=== PATIENT | female | born 1985 | race Caucasian/White ===

== ENCOUNTER 2019-06-25 16:01 | Inpatient (IN) | payer OTHER ==
[2019-06-25] MEDS ORDERED: Ketorolac 30 MG/ML SDV IVPUSH ONE (16:19)
[2019-06-25] MEDS ORDERED: Sodium Chloride 0.9% 1,000 ML IV ONE ×2 (16:19→17:34)
[2019-06-25] MEDS ORDERED: Ondansetron 4 MG/2 ML SDV IVPUSH ONE (16:19)
--- NOTE | 2019-06-25 16:26 | EDM.PDOC ---
ED HPI GENERAL MEDICAL PROBLEM - General Chief Complaint: Neurological Problem Stated Complaint: SEIZURES Time Seen by Provider: 06/25/19 16:03 Source of Information: Reports: Patient History Limitations: Reports: No Limitations - History of Present Illness INITIAL COMMENTS - FREE TEXT/NARRATIVE: HISTORY AND PHYSICAL: History of present illness: Patient is a 34-year-old female who presents to the ED today with concern of vomiting, and her arms "locking up" since this morning. Patient states that her forearms are painful to her but she has not have any other pain. Patient states she does have a history of a seizure disorder but has not been on medications and has never been on medications for this. Patient isn't able to explain what she means by her seizure disorder. Patient denies any other symptoms or concerns or any other health history. Patient denies fever, chills, chest pain, shortness of breath, or cough. Denies headache, neck stiff ness, change in vision, syncope, or near syncope. Denies abdominal pain, diarrhea, constipation, or dysuria. Has not noted any blood in urine or stool. Patient has been eating and drinking appropriately. Review of systems: As per history of present illness and below otherwise all systems reviewed and negative. Past medical history: As per history of present illness and as reviewed below otherwise noncontributory. Surgical history: As per history of present illness and as reviewed below otherwise noncontributory. Social history: See social history for further information Family history: As per history of present illness and as reviewed below otherwise noncontributory. Physical exam: General: Patient is alert, oriented, and in no acute distress. Patient sitting on exam table, holding emesis basin and shaking. She does vomit clear fluids on exam. HEENT: Atraumatic, normocephalic, pupils equal and reactive bilaterally, negative for conjunctival pallor or scleral icterus, mucous membranes moist, TMs normal bilaterally, throat clear, neck supple, nontender, trachea midline. No drooling or trismus noted. No meningeal signs. No hot potato voice noted. Lungs: Clear to auscultation, breath sounds equal bilaterally, chest nontender. Heart: S1S2, regular rate and rhythm without overt murmur Abdomen: Soft, nondistended, nontender. Negative for masses or hepatosplenomegaly. Negative for costovertebral tenderness. Pelvis: Stable nontender. Genitourinary: Deferred. Rectal: Deferred. Skin: Intact, warm, dry. No lesions or rashes noted. Extremities: Atraumatic, negative for cords or calf pain. Neurovascular unremarkable. Neuro: Awake, alert, oriented. Cranial nerves II through XII unremarkable. Cerebellum unremarkable. Motor and sensory unremarkable throughout. Exam nonfocal. Notes: Dr. Vazquez, hospitalist legal consultant, consulted on patient and will admit to observation Voices understanding and is agreeable to plan of care. Denies any further questions or concerns at this time. Diagnostics: CBC, CMP, UA, EKG, chest x-ray, urine hCG, CPK, urine drug screen, ethanol Therapeutics: Saline, Zofran, Toradol Impression: Rhabdomyolysis, mild Dehydration H/O seizure disorder Plan: 1. Admit to observation to Dr. Vazquez Definitive disposition and diagnosis as appropriate pending reevaluation and review of above. generalized Pain Score (Numeric/FACES): 8 - Related Data Allergies Allergy/AdvReac Type Severity Reaction Status Date / Time gentamicin Allergy Other Verified 06/25/19 16:15 Home Meds: Home Meds . [No Known Home Meds] 06/25/19 [History] Past Medical History - Past Health History Medical/Surgical History: Denies Medical/Surgical History Neurological History: Reports: Seizure - Past Surgical History Female Surgical History: Reports: Section Social & Family History - Family History Family Medical History: Noncontributory - Tobacco Use Smoking Status *Q: Current Every Day Smoker Years of Tobacco use: 20 Packs/Tins Daily: 0.5 - Recreational Drug Use Recreational Drug Use: No ED ROS GENERAL - Review of Systems Review Of Systems: ROS reveals no pertinent complaints other than HPI. ED EXAM, GENERAL - Physical Exam Exam: See Below (See dictation) Course - Vital Signs Last Recorded V/S: Last Vital Signs Temp 98.3 F 06/25/19 16:12 Pulse 76 06/25/19 17:33 Resp 18 06/25/19 17:33 BP 153/98 H 06/25/19 17:33 Pulse Ox 98 06/25/19 17:33 - Orders/Labs/Meds Orders: Active Orders 24 hr Category Date Time Status Admission Status [Patient Status] [ADT] Stat ADT 06/25/19 18:16 Ordered EKG Documentation Completion [RC] STAT Care 06/25/19 16:21 Active Sodium Chloride 0.9% [Normal Saline] 1,000 ml Med 06/25/19 17:34 Active IV STAT Medication Orders Sodium Chloride (Normal Saline) 1,000 mls @ 999 mls/hr IV STAT ONE Stop: 06/25/19 18:34 Last Admin: 06/25/19 17:41 Dose: 999 mls/hr Labs: Laboratory Tests 06/25/19 06/25/19 06/25/19 Range/Units 16:19 16:22 16:45 WBC 7.67 (4.0-11.0) K/uL RBC 3.92 L (4.30-5.90) M/uL Hgb 12.3 (12.0-16.0) g/dL Hct 37.2 (36.0-46.0) % MCV 94.9 (80.0-98.0) fL MCH 31.4 (27.0-32.0) pg MCHC 33.1 (31.0-37.0) g/dL RDW Std Deviation 50.9 (28.0-62.0) fl RDW Coeff of Bishop 15 (11.0-15.0) % Plt Count 193 (150-400) K/uL MPV 10.40 (7.40-12.00) fL Neut % (Auto) 77.2 (48.0-80.0) % Lymph % (Auto) 11.1 L (16.0-40.0) % Worth % (Auto) 10.2 (0.0-15.0) % Eos % (Auto) 0.1 (0.0-7.0) % Baso % (Auto) 1.4 (0.0-1.5) % Neut # (Auto) 5.9 H (1.4-5.7) K/uL Lymph # (Auto) 0.9 (0.6-2.4) K/uL Worth # (Auto) 0.8 (0.0-0.8) K/uL Eos # (Auto) 0.0 (0.0-0.7) K/uL Baso # (Auto) 0.1 (0.0-0.1) K/uL Nucleated RBC % 0.0 /100WBC Nucleated RBCs # 0 K/uL Sodium (136-145) mmol/L Potassium (3.5-5.1) mmol/L Chloride (98-107) mmol/L Carbon Dioxide (21.0-32.0) mmol/L BUN (7.0-18.0) mg/dL Creatinine (0.6-1.0) mg/dL Est Cr Clr Drug Dosing mL/min Estimated GFR (MDRD) ml/min Glucose (74-106) mg/dL Calcium (8.5-10.1) mg/dL Total Bilirubin (0.2-1.0) mg/dL AST (15-37) IU/L ALT (14-63) IU/L Alkaline Phosphatase (46-116) U/L Creatine Kinase (26-308) U/L Total Protein (6.4-8.2) g/dL Albumin (3.4-5.0) g/dL Globulin (2.6-4.0) g/dL Albumin/Globulin Ratio (0.9-1.6) Lipase (73-393) U/L Urine Color YELLOW Urine Appearance CLEAR Urine pH 8.5 H (5.0-8.0) Ur Specific Fate 1.015 (1.001-1.035) Urine Protein TRACE H (NEGATIVE) mg/dL Urine Glucose (UA) NEGATIVE (NEGATIVE) mg/dL Urine Ketones >=80 (NEGATIVE) mg/dL Urine Occult Blood TRACE-LYSED H (NEGATIVE) Urine Nitrite NEGATIVE (NEGATIVE) Urine Bilirubin NEGATIVE (NEGATIVE) Urine Urobilinogen 0.2 (<2.0) EU/dL Ur Leukocyte Esterase NEGATIVE (NEGATIVE) Urine RBC 0-2 (0-2/HPF) Urine WBC 0-1 (0-5/HPF) Ur Epithelial Cells OCCASIONAL (NONE-FEW) Urine Bacteria RARE (NEGATIVE) Urine HCG, Qual NEGATIVE (NEGATIVE) Urine Opiates Screen (NEGATIVE) Ur Oxycodone Screen (NEGATIVE) Urine Methadone Screen (NEGATIVE) Ur Barbiturates Screen (NEGATIVE) Ur Phencyclidine Scrn (NEGATIVE) Ur Amphetamine Screen (NEGATIVE) U Methamphetamines Scrn (NEGATIVE) U Benzodiazepines Scrn (NEGATIVE) U Cocaine Metab Screen (NEGATIVE) U Marijuana (THC) Screen (NEGATIVE) Ethyl Alcohol mg/dL 06/25/19 06/25/19 Range/Units 16:45 17:38 WBC (4.0-11.0) K/uL RBC (4.30-5.90) M/uL Hgb (12.0-16.0) g/dL Hct (36.0-46.0) % MCV (80.0-98.0) fL MCH (27.0-32.0) pg MCHC (31.0-37.0) g/dL RDW Std Deviation (28.0-62.0) fl RDW Coeff of Bishop (11.0-15.0) % Plt Count (150-400) K/uL MPV (7.40-12.00) fL Neut % (Auto) (48.0-80.0) % Lymph % (Auto) (16.0-40.0) % Worth % (Auto) (0.0-15.0) % Eos % (Auto) (0.0-7.0) % Baso % (Auto) (0.0-1.5) % Neut # (Auto) (1.4-5.7) K/uL Lymph # (Auto) (0.6-2.4) K/uL Worth # (Auto) (0.0-0.8) K/uL Eos # (Auto) (0.0-0.7) K/uL Baso # (Auto) (0.0-0.1) K/uL Nucleated RBC % /100WBC Nucleated RBCs # K/uL Sodium 139 (136-145) mmol/L Potassium 3.7 (3.5-5.1) mmol/L Chloride 97 L (98-107) mmol/L Carbon Dioxide 24.7 (21.0-32.0) mmol/L BUN 8 (7.0-18.0) mg/dL Creatinine 0.8 (0.6-1.0) mg/dL Est Cr Clr Drug Dosing 69.61 mL/min Estimated GFR (MDRD) > 60.0 ml/min Glucose 133 H (74-106) mg/dL Calcium 8.1 L (8.5-10.1) mg/dL Total Bilirubin 0.7 (0.2-1.0) mg/dL AST 142 H (15-37) IU/L ALT 104 H (14-63) IU/L Alkaline Phosphatase 100 (46-116) U/L Creatine Kinase 937 H (26-308) U/L Total Protein 7.7 (6.4-8.2) g/dL Albumin 3.9 (3.4-5.0) g/dL Globulin 3.8 (2.6-4.0) g/dL Albumin/Globulin Ratio 1.0 (0.9-1.6) Lipase 153 (73-393) U/L Urine Color Urine Appearance Urine pH (5.0-8.0) Ur Specific Fate (1.001-1.035) Urine Protein (NEGATIVE) mg/dL Urine Glucose (UA) (NEGATIVE) mg/dL Urine Ketones (NEGATIVE) mg/dL Urine Occult Blood (NEGATIVE) Urine Nitrite (NEGATIVE) Urine Bilirubin (NEGATIVE) Urine Urobilinogen (<2.0) EU/dL Ur Leukocyte Esterase (NEGATIVE) Urine RBC (0-2/HPF) Urine WBC (0-5/HPF) Ur Epithelial Cells (NONE-FEW) Urine Bacteria (NEGATIVE) Urine HCG, Qual (NEGATIVE) Urine Opiates Screen NEGATIVE (NEGATIVE) Ur Oxycodone Screen NEGATIVE (NEGATIVE) Urine Methadone Screen NEGATIVE (NEGATIVE) Ur Barbiturates Screen NEGATIVE (NEGATIVE) Ur Phencyclidine Scrn NEGATIVE (NEGATIVE) Ur Amphetamine Screen NEGATIVE (NEGATIVE) U Methamphetamines Scrn NEGATIVE (NEGATIVE) U Benzodiazepines Scrn NEGATIVE (NEGATIVE) U Cocaine Metab Screen NEGATIVE (NEGATIVE) U Marijuana (THC) Screen NEGATIVE (NEGATIVE) Ethyl Alcohol < 3.0 mg/dL Meds: Medications Generic Name Dose Route Start Last Admin Trade Name Freq PRN Reason Stop Dose Admin Sodium Chloride 1,000 mls @ 999 mls/hr 06/25/19 17:34 06/25/19 17:41 Normal Saline IV 06/25/19 18:34 999 mls/hr STAT ONE Administration Discontinued Medications Generic Name Dose Route Start Last Admin Trade Name Freq PRN Reason Stop Dose Admin Sodium Chloride 1,000 mls @ 999 mls/hr 06/25/19 16:19 06/25/19 16:52 Normal Saline IV 06/25/19 17:19 999 mls/hr BOLUS ONE Administration Ketorolac Tromethamine 30 mg 06/25/19 16:19 06/25/19 16:53 Toradol IVPUSH 06/25/19 16:20 30 mg ONETIME ONE Administration Ondansetron HCl 4 mg 06/25/19 16:19 06/25/19 16:53 Zofran IVPUSH 06/25/19 16:20 4 mg ONETIME ONE Administration Departure - Departure Time of Disposition: 18:19 Disposition: Refer to Observation Clinical Impression: Dehydration, History of seizure disorder Rhabdomyolysis Qualifiers: Rhabdomyolysis type: non-traumatic Qualified Code(s): M62.82 - Rhabdomyolysis - Discharge Information Referrals: PCP,None [Primary Care Provider] - Forms: ED Department Discharge - My Orders Last 24 Hours: My Active Orders 06/25/19 16:21 EKG Documentation Completion [RC] STAT 06/25/19 17:34 Sodium Chloride 0.9% [Normal Saline] 1,000 ml IV STAT 06/25/19 18:16 Admission Status [Patient Status] [ADT] Stat - Assessment/Plan Last 24 Hours: My Active Orders 06/25/19 16:21 EKG Documentation Completion [RC] STAT 06/25/19 17:34 Sodium Chloride 0.9% [Normal Saline] 1,000 ml IV STAT 06/25/19 18:16 Admission Status [Patient Status] [ADT] Stat
[2019-06-25 17:15] LABS: BLOOD UREA NITROGEN,BUN 8 mg/dL (7.0-18.0); CARBON DIOXIDE,CO2 24.7 mmol/L (21.0-32.0); CHLORIDE,CL 97 mmol/L (98-107); GLUCOSE RANDOM 133 mg/dL (74-106); LIPASE 153 U/L (73-393); POTASSIUM,K 3.7 mmol/L (3.5-5.1); SODIUM,NA 139 mmol/L (136-145)
--- NOTE | 2019-06-25 17:48 | CR ---
CHEST 1 VIEW AP INDICATION: Chest pain and shortness of breath. IMPRESSION: Normal heart size and vascular pattern. Lungs are clear of focal opacities. No pneumothorax or pleural abnormality. Dictated by Geoff Siddiqi MD @ Jun 25 2019 5:46PM Signed by Dr. Geoff Siddiqi @ Jun 25 2019 5:47PM
[2019-06-25] MEDS ORDERED: Ibuprofen 600 MG Tab PO PRN (18:34)
[2019-06-25] MEDS ORDERED: Ondansetron 4 MG Tab.DIS PO PRN (18:34)
[2019-06-25] MEDS ORDERED: Calcium Gluconate 10% 1 GM/10 ML SDV IV ONE ×2 (18:41→20:45)
[2019-06-25] MEDS ORDERED: LORazepam 2 MG/ML SDV IVPUSH PRN (18:43)
[2019-06-25] MEDS ORDERED: Sodium Chloride 0.9% 1,000 ML IV SCH ×2 (18:45→19:00)
[2019-06-25] MEDS ORDERED: Enoxaparin 30 MG/0.3 ML Syringe SUBCUT SCH (18:45)
[2019-06-25] MEDS ORDERED: LORazepam 2 MG/ML SDV IVPUSH ONE (18:57)
--- NOTE | 2019-06-25 18:57 | PCM.HP.2 ---
H&P History of Present Illness - General Date of Service: 06/25/19 Admit Problem/Dx: Admission Diagnosis/Problem Admission Diagnosis/Problem Rhabdomyolysis - History of Present Illness Initial Comments - Free Text/Narative: 34 y/o female presenting to the ER after she had upper and lower extremity spasms. She states she was home with her family and that she suddenly started having upper extremity spasms where she could not move her arm, fingers. Lasted for few minutes. States that she was diagnosed with a seizure disorder years ago. Not taking any medications. She states she last drank alcohol on Wednesday about 2 small bottles of [place]. Smokes daily basis. Denies any illicit drug use. No allergies. She denies losing consciousness. Previous episode was about 2 weeks ago she states. In addition, she endorses withdrawal seizures few years ago after drinking alcohol. In the ER, she was hydrated with NS. States she has been having some bilious emesis. No blood. Poor appetite. Denies any abdominal pain, dysuria, diarrhea, constipation. No edema or rashes. generalized Pain Score (Numeric/FACES): 8 - Related Data Allergies/Adverse Reactions: Allergies Allergy/AdvReac Type Severity Reaction Status Date / Time gentamicin Allergy Other Verified 06/25/19 16:15 Home Medications: Home Meds . [No Known Home Meds] 06/25/19 [History] Past Medical History - Past Health History Medical/Surgical History: Denies Medical/Surgical History Neurological History: Reports: Seizure - Past Surgical History Female Surgical History: Reports: Section Social & Family History - Family History Family Medical History: Noncontributory - Tobacco Use Smoking Status *Q: Current Every Day Smoker Years of Tobacco use: 20 Packs/Tins Daily: 0.5 - Recreational Drug Use Recreational Drug Use: No H&P Review of Systems - Review of Systems: Review Of Systems: ROS reveals no pertinent complaints other than HPI. Exam - Exam Exam: See Below - Vital Signs Vital Signs: Last Vital Signs Temp 36.8 C 06/25/19 16:12 Pulse 76 06/25/19 17:33 Resp 18 06/25/19 17:33 BP 153/98 H 06/25/19 17:33 Pulse Ox 98 06/25/19 17:33 Weight: 45.359 kg - Exam General: Alert, Oriented, Cooperative, Other (tremulous) HEENT: Other (dry oral mucosa) Lungs: Clear to Auscultation, Normal Respiratory Effort. No: Crackles, Wheezing Cardiovascular: Regular Rhythm, Tachycardia GI/Abdominal Exam: Normal Bowel Sounds, Soft, Non-Tender, No Distention Extremities: Normal Inspection, Non-Tender, No Pedal Edema Skin: Warm, Dry Neuro Extensive - Mental Status: Alert, Oriented x3 - Patient Data Lab Results Last 24 hrs: Laboratory Results - last 24 hr 06/25/19 06/25/19 06/25/19 Range/Units 16:19 16:22 16:45 WBC 7.67 (4.0-11.0) K/uL RBC 3.92 L (4.30-5.90) M/uL Hgb 12.3 (12.0-16.0) g/dL Hct 37.2 (36.0-46.0) % MCV 94.9 (80.0-98.0) fL MCH 31.4 (27.0-32.0) pg MCHC 33.1 (31.0-37.0) g/dL RDW Std Deviation 50.9 (28.0-62.0) fl RDW Coeff of Bishop 15 (11.0-15.0) % Plt Count 193 (150-400) K/uL MPV 10.40 (7.40-12.00) fL Neut % (Auto) 77.2 (48.0-80.0) % Lymph % (Auto) 11.1 L (16.0-40.0) % Esmeralda % (Auto) 10.2 (0.0-15.0) % Eos % (Auto) 0.1 (0.0-7.0) % Baso % (Auto) 1.4 (0.0-1.5) % Neut # (Auto) 5.9 H (1.4-5.7) K/uL Lymph # (Auto) 0.9 (0.6-2.4) K/uL Esmeralda # (Auto) 0.8 (0.0-0.8) K/uL Eos # (Auto) 0.0 (0.0-0.7) K/uL Baso # (Auto) 0.1 (0.0-0.1) K/uL Nucleated RBC % 0.0 /100WBC Nucleated RBCs # 0 K/uL Sodium (136-145) mmol/L Potassium (3.5-5.1) mmol/L Chloride (98-107) mmol/L Carbon Dioxide (21.0-32.0) mmol/L BUN (7.0-18.0) mg/dL Creatinine (0.6-1.0) mg/dL Est Cr Clr Drug Dosing mL/min Estimated GFR (MDRD) ml/min Glucose (74-106) mg/dL Calcium (8.5-10.1) mg/dL Total Bilirubin (0.2-1.0) mg/dL AST (15-37) IU/L ALT (14-63) IU/L Alkaline Phosphatase (46-116) U/L Creatine Kinase (26-308) U/L Total Protein (6.4-8.2) g/dL Albumin (3.4-5.0) g/dL Globulin (2.6-4.0) g/dL Albumin/Globulin Ratio (0.9-1.6) Lipase (73-393) U/L Urine Color YELLOW Urine Appearance CLEAR Urine pH 8.5 H (5.0-8.0) Ur Specific [place] 1.015 (1.001-1.035) Urine Protein TRACE H (NEGATIVE) mg/dL Urine Glucose (UA) NEGATIVE (NEGATIVE) mg/dL Urine Ketones >=80 (NEGATIVE) mg/dL Urine Occult Blood TRACE-LYSED H (NEGATIVE) Urine Nitrite NEGATIVE (NEGATIVE) Urine Bilirubin NEGATIVE (NEGATIVE) Urine Urobilinogen 0.2 (<2.0) EU/dL Ur Leukocyte Esterase NEGATIVE (NEGATIVE) Urine RBC 0-2 (0-2/HPF) Urine WBC 0-1 (0-5/HPF) Ur Epithelial Cells OCCASIONAL (NONE-FEW) Urine Bacteria RARE (NEGATIVE) Urine HCG, Qual NEGATIVE (NEGATIVE) Urine Opiates Screen (NEGATIVE) Ur Oxycodone Screen (NEGATIVE) Urine Methadone Screen (NEGATIVE) Ur Barbiturates Screen (NEGATIVE) Ur Phencyclidine Scrn (NEGATIVE) Ur Amphetamine Screen (NEGATIVE) U Methamphetamines Scrn (NEGATIVE) U Benzodiazepines Scrn (NEGATIVE) U Cocaine Metab Screen (NEGATIVE) U Marijuana (THC) Screen (NEGATIVE) Ethyl Alcohol mg/dL 06/25/19 06/25/19 Range/Units 16:45 17:38 WBC (4.0-11.0) K/uL RBC (4.30-5.90) M/uL Hgb (12.0-16.0) g/dL Hct (36.0-46.0) % MCV (80.0-98.0) fL MCH (27.0-32.0) pg MCHC (31.0-37.0) g/dL RDW Std Deviation (28.0-62.0) fl RDW Coeff of Bishop (11.0-15.0) % Plt Count (150-400) K/uL MPV (7.40-12.00) fL Neut % (Auto) (48.0-80.0) % Lymph % (Auto) (16.0-40.0) % Esmeralda % (Auto) (0.0-15.0) % Eos % (Auto) (0.0-7.0) % Baso % (Auto) (0.0-1.5) % Neut # (Auto) (1.4-5.7) K/uL Lymph # (Auto) (0.6-2.4) K/uL Esmeralda # (Auto) (0.0-0.8) K/uL Eos # (Auto) (0.0-0.7) K/uL Baso # (Auto) (0.0-0.1) K/uL Nucleated RBC % /100WBC Nucleated RBCs # K/uL Sodium 139 (136-145) mmol/L Potassium 3.7 (3.5-5.1) mmol/L Chloride 97 L (98-107) mmol/L Carbon Dioxide 24.7 (21.0-32.0) mmol/L BUN 8 (7.0-18.0) mg/dL Creatinine 0.8 (0.6-1.0) mg/dL Est Cr Clr Drug Dosing 69.61 mL/min Estimated GFR (MDRD) > 60.0 ml/min Glucose 133 H (74-106) mg/dL Calcium 8.1 L (8.5-10.1) mg/dL Total Bilirubin 0.7 (0.2-1.0) mg/dL AST 142 H (15-37) IU/L ALT 104 H (14-63) IU/L Alkaline Phosphatase 100 (46-116) U/L Creatine Kinase 937 H (26-308) U/L Total Protein 7.7 (6.4-8.2) g/dL Albumin 3.9 (3.4-5.0) g/dL Globulin 3.8 (2.6-4.0) g/dL Albumin/Globulin Ratio 1.0 (0.9-1.6) Lipase 153 (73-393) U/L Urine Color Urine Appearance Urine pH (5.0-8.0) Ur Specific [place] (1.001-1.035) Urine Protein (NEGATIVE) mg/dL Urine Glucose (UA) (NEGATIVE) mg/dL Urine Ketones (NEGATIVE) mg/dL Urine Occult Blood (NEGATIVE) Urine Nitrite (NEGATIVE) Urine Bilirubin (NEGATIVE) Urine Urobilinogen (<2.0) EU/dL Ur Leukocyte Esterase (NEGATIVE) Urine RBC (0-2/HPF) Urine WBC (0-5/HPF) Ur Epithelial Cells (NONE-FEW) Urine Bacteria (NEGATIVE) Urine HCG, Qual (NEGATIVE) Urine Opiates Screen NEGATIVE (NEGATIVE) Ur Oxycodone Screen NEGATIVE (NEGATIVE) Urine Methadone Screen NEGATIVE (NEGATIVE) Ur Barbiturates Screen NEGATIVE (NEGATIVE) Ur Phencyclidine Scrn NEGATIVE (NEGATIVE) Ur Amphetamine Screen NEGATIVE (NEGATIVE) U Methamphetamines Scrn NEGATIVE (NEGATIVE) U Benzodiazepines Scrn NEGATIVE (NEGATIVE) U Cocaine Metab Screen NEGATIVE (NEGATIVE) U Marijuana (THC) Screen NEGATIVE (NEGATIVE) Ethyl Alcohol < 3.0 mg/dL Result Diagrams: 06/25/19 16:45 06/25/19 16:45 Problem List Initiated/Reviewed/Updated: Yes Orders Last 24hrs: Active Orders 24 hr Category Date Time Status Admission Status [Patient Status] [ADT] Stat ADT 06/25/19 18:16 Active EKG Documentation Completion [RC] STAT Care 06/25/19 16:21 Active Intake and Output [RC] QSHIFT Care 06/25/19 18:35 Active Oxygen Therapy [RC] PRN Care 06/25/19 18:34 Active Up ad Jie [RC] ASDIRECTED Care 06/25/19 18:34 Active VTE/DVT Education [RC] PER UNIT ROUTINE Care 06/25/19 18:34 Active Vital Signs [RC] Q4H Care 06/25/19 18:34 Active Clear Liquid Diet [DIET] Diet 06/25/19 Dinner Active CBC WITH AUTO DIFF [HEME] AM Lab 06/26/19 05:11 Ordered CBC WITH AUTO DIFF [HEME] AM Lab 06/27/19 05:11 Ordered CMP [COMPREHENSIVE METABOLIC PN,CMP] [CHEM] AM Lab 06/26/19 05:11 Ordered CMP [COMPREHENSIVE METABOLIC PN,CMP] [CHEM] AM Lab 06/27/19 05:11 Ordered GLYCOSYLATED HEMOGLOBIN,HGBA1C [CHEM] AM Lab 06/26/19 05:11 Ordered IONIZED CALCIUM,WHOLE BLOOD [BG] Stat Lab 06/25/19 18:39 Ordered MAGNESIUM [CHEM] Stat Lab 06/25/19 16:45 Received PHOSPHORUS [CHEM] Stat Lab 06/25/19 16:45 Received PTH, INTACT [REF] Routine Lab 06/26/19 05:55 Ordered Enoxaparin [Lovenox] Med 06/25/19 18:45 Active 30 mg SUBCUT Q24H Folic Acid Med 06/25/19 21:00 Active 1 mg PO BEDTIME Ibuprofen [Motrin] Med 06/25/19 18:34 Active 600 mg PO Q6H PRN LORazepam [Ativan] Med 06/25/19 18:43 Active See Protocol IVPUSH Q4H PRN Ondansetron [Zofran ODT] Med 06/25/19 18:34 Active 4 mg PO Q4H PRN Ondansetron [Zofran] Med 06/25/19 18:34 Active 4 mg IVPUSH Q4H PRN Sodium Chloride 0.9% [Normal Saline] 1,000 ml Med 06/25/19 19:00 Ordered IV CONTINUOUS Thiamine [Vitamin B-1] Med 06/25/19 21:00 Active 100 mg PO BEDTIME Resuscitation Status Routine Resus Stat 06/25/19 18:34 Ordered Medication Orders Enoxaparin Sodium (Lovenox) 30 mg SUBCUT Q24H LILIAN Folic Acid (Folic Acid) 1 mg PO BEDTIME LILIAN Sodium Chloride (Normal Saline) 1,000 mls @ 125 mls/hr IV CONTINUOUS LILIAN Ibuprofen (Motrin) 600 mg PO Q6H PRN PRN Reason: Pain (mild 1-3) Lorazepam (Ativan) 0 mg IVPUSH Q4H PRN; Protocol PRN Reason: Withdrawal Symptoms Ondansetron HCl (Zofran Odt) 4 mg PO Q4H PRN PRN Reason: nausea, able to take PO Ondansetron HCl (Zofran) 4 mg IVPUSH Q4H PRN PRN Reason: Nausea Thiamine HCl (Vitamin B-1) 100 mg PO BEDTIME LILIAN Assessment/Plan Comment:: A: 1. Body spasms, tetany 2. Rhabdomyolysis 3. Hypocalcemia 4. Hypomagnesemia 5. Hypophosphatemia 6. Mild elevated liver enzymes P: 1. Body spasms, tetany likely 2/2 electrolyte abnormalities. Will replace Ca, Mg , Phos. Continue with hydration NS 125 ml/hr. Will start CIWA and ativan PRN for withdrawal symptoms due to history of alcohol. 2. Rhabdomyolysis-continue with NS 125 ml/hr. Recheck tomorrow. 3. Hypocalcemia- ordered ionized calcium. Will give Calcium gluconate 1g IV over 1 hour. 4. Hypomagnesemia- replace with MgS 4 g IV once. recheck tomorrow. start telemetry overnight. 5. Elevated liver enzymes- recheck tomorrow. Dispo: 1-2 days.
[2019-06-25] MEDS ORDERED: Magnesium Sulfate/Water 4 GM in Premix Bag 1 BAG IV ONE (18:58)
[2019-06-25] MEDS ORDERED: Ketorolac 15 MG/ML SDV IVPUSH PRN (19:12)
[2019-06-25] MEDS: Thiamine 100 MG Tab PO SCH (20:53)
[2019-06-25] MEDS: Folic Acid 1 MG Tab PO SCH (20:53)
[2019-06-25] MEDS: Ondansetron 4 MG/2 ML SDV IVPUSH PRN (20:56)
[2019-06-25] MEDS ORDERED: Phosphorus #1 250 MG Tab PO ONE (22:51)
[2019-06-26] MEDS ORDERED: Sodium Chloride 0.9% 1,000 ML IV ONE (06:10)
[2019-06-26 06:30] LABS: HEMOGLOBIN A1C 5.7 % (4.5-6.2)
[2019-06-26 06:47] LABS: BLOOD UREA NITROGEN,BUN 3 mg/dL (7.0-18.0); CARBON DIOXIDE,CO2 27.7 mmol/L (21.0-32.0); CHLORIDE,CL 99 mmol/L (98-107); GLUCOSE RANDOM 82 mg/dL (74-106); POTASSIUM,K 3.3 mmol/L (3.5-5.1); SODIUM,NA 137 mmol/L (136-145)
[2019-06-26] MEDS ORDERED: Magnesium Sulfate/Water 2 GM in Premix Bag 1 BAG IV ONE (07:32)
[2019-06-26] MEDS ORDERED: Potassium Chloride 10% 20 MEQ/15 ML Soln 30 ML UD Cup PO ONE (07:33)
[2019-06-26] MEDS ORDERED: Calcium Gluconate 10% 1 GM/10 ML SDV IV ONE (07:36)
[2019-06-26] MEDS: Sodium Chloride 0.9% 1,000 ML IV SCH ×4 (07:55→18:13)
[2019-06-26] MEDS: Ondansetron 4 MG/2 ML SDV IVPUSH PRN (07:58)
[2019-06-26] MEDS ORDERED: Calcium Gluconate 2 GM in Sodium Chloride 0.9% 100 ML IV SCH (08:00)
--- NOTE | 2019-06-26 08:31 | PCM.PN ---
- General Info Date of Service: 06/26/19 Subjective Update: 34 y/o female admitted for rhabdomyolysis and electrolyte abnormalities. This morning, she was feeling better. Complaining of night sweats and some spasms in calfs and forearms. No vomiting. CIWA scores <5. - Patient Data Vitals - Most Recent: Last Vital Signs Temp 36.8 C 06/26/19 07:32 Pulse 93 06/26/19 07:32 Resp 16 06/26/19 07:32 BP 139/96 H 06/26/19 07:32 Pulse Ox 97 06/26/19 07:32 Weight - Most Recent: 46.8 kg I&O - Last 24 Hours: Intake & Output 06/25/19 06/26/19 06/26/19 22:59 06:59 14:59 Intake Total 1780 Output Total 900 Balance 880 Lab Results Last 24 Hours: Laboratory Results - last 24 hr 06/25/19 06/25/19 06/25/19 Range/Units 16:19 16:22 16:45 WBC 7.67 (4.0-11.0) K/uL RBC 3.92 L (4.30-5.90) M/uL Hgb 12.3 (12.0-16.0) g/dL Hct 37.2 (36.0-46.0) % MCV 94.9 (80.0-98.0) fL MCH 31.4 (27.0-32.0) pg MCHC 33.1 (31.0-37.0) g/dL RDW Std Deviation 50.9 (28.0-62.0) fl RDW Coeff of Bishop 15 (11.0-15.0) % Plt Count 193 (150-400) K/uL MPV 10.40 (7.40-12.00) fL Neut % (Auto) 77.2 (48.0-80.0) % Lymph % (Auto) 11.1 L (16.0-40.0) % [place] % (Auto) 10.2 (0.0-15.0) % Eos % (Auto) 0.1 (0.0-7.0) % Baso % (Auto) 1.4 (0.0-1.5) % Neut # (Auto) 5.9 H (1.4-5.7) K/uL Lymph # (Auto) 0.9 (0.6-2.4) K/uL [place] # (Auto) 0.8 (0.0-0.8) K/uL Eos # (Auto) 0.0 (0.0-0.7) K/uL Baso # (Auto) 0.1 (0.0-0.1) K/uL Nucleated RBC % 0.0 /100WBC Nucleated RBCs # 0 K/uL Ionized Calcium (4.6-5.1) mg/dL Sodium (136-145) mmol/L Potassium (3.5-5.1) mmol/L Chloride (98-107) mmol/L Carbon Dioxide (21.0-32.0) mmol/L BUN (7.0-18.0) mg/dL Creatinine (0.6-1.0) mg/dL Est Cr Clr Drug Dosing mL/min Estimated GFR (MDRD) ml/min Glucose (74-106) mg/dL Hemoglobin A1c (4.5-6.2) % Calcium (8.5-10.1) mg/dL Phosphorus (2.6-4.7) mg/dL Magnesium (1.8-2.4) mg/dL Total Bilirubin (0.2-1.0) mg/dL AST (15-37) IU/L ALT (14-63) IU/L Alkaline Phosphatase (46-116) U/L Creatine Kinase (26-308) U/L Total Protein (6.4-8.2) g/dL Albumin (3.4-5.0) g/dL Globulin (2.6-4.0) g/dL Albumin/Globulin Ratio (0.9-1.6) Lipase (73-393) U/L Vitamin D 25-Hydroxy (30.0-100.0) ng/mL Urine Color YELLOW Urine Appearance CLEAR Urine pH 8.5 H (5.0-8.0) Ur Specific Baldwin 1.015 (1.001-1.035) Urine Protein TRACE H (NEGATIVE) mg/dL Urine Glucose (UA) NEGATIVE (NEGATIVE) mg/dL Urine Ketones >=80 (NEGATIVE) mg/dL Urine Occult Blood TRACE-LYSED H (NEGATIVE) Urine Nitrite NEGATIVE (NEGATIVE) Urine Bilirubin NEGATIVE (NEGATIVE) Urine Urobilinogen 0.2 (<2.0) EU/dL Ur Leukocyte Esterase NEGATIVE (NEGATIVE) Urine RBC 0-2 (0-2/HPF) Urine WBC 0-1 (0-5/HPF) Ur Epithelial Cells OCCASIONAL (NONE-FEW) Urine Bacteria RARE (NEGATIVE) Urine HCG, Qual NEGATIVE (NEGATIVE) Urine Opiates Screen (NEGATIVE) Ur Oxycodone Screen (NEGATIVE) Urine Methadone Screen (NEGATIVE) Ur Barbiturates Screen (NEGATIVE) Ur Phencyclidine Scrn (NEGATIVE) Ur Amphetamine Screen (NEGATIVE) U Methamphetamines Scrn (NEGATIVE) U Benzodiazepines Scrn (NEGATIVE) U Cocaine Metab Screen (NEGATIVE) U Marijuana (THC) Screen (NEGATIVE) Ethyl Alcohol mg/dL 06/25/19 06/25/19 06/25/19 Range/Units 16:45 16:45 17:38 WBC (4.0-11.0) K/uL RBC (4.30-5.90) M/uL Hgb (12.0-16.0) g/dL Hct (36.0-46.0) % MCV (80.0-98.0) fL MCH (27.0-32.0) pg MCHC (31.0-37.0) g/dL RDW Std Deviation (28.0-62.0) fl RDW Coeff of Bishop (11.0-15.0) % Plt Count (150-400) K/uL MPV (7.40-12.00) fL Neut % (Auto) (48.0-80.0) % Lymph % (Auto) (16.0-40.0) % [place] % (Auto) (0.0-15.0) % Eos % (Auto) (0.0-7.0) % Baso % (Auto) (0.0-1.5) % Neut # (Auto) (1.4-5.7) K/uL Lymph # (Auto) (0.6-2.4) K/uL [place] # (Auto) (0.0-0.8) K/uL Eos # (Auto) (0.0-0.7) K/uL Baso # (Auto) (0.0-0.1) K/uL Nucleated RBC % /100WBC Nucleated RBCs # K/uL Ionized Calcium (4.6-5.1) mg/dL Sodium 139 (136-145) mmol/L Potassium 3.7 (3.5-5.1) mmol/L Chloride 97 L (98-107) mmol/L Carbon Dioxide 24.7 (21.0-32.0) mmol/L BUN 8 (7.0-18.0) mg/dL Creatinine 0.8 (0.6-1.0) mg/dL Est Cr Clr Drug Dosing 69.61 mL/min Estimated GFR (MDRD) > 60.0 ml/min Glucose 133 H (74-106) mg/dL Hemoglobin A1c (4.5-6.2) % Calcium 8.1 L (8.5-10.1) mg/dL Phosphorus 2.3 L (2.6-4.7) mg/dL Magnesium 0.5 L (1.8-2.4) mg/dL Total Bilirubin 0.7 (0.2-1.0) mg/dL AST 142 H (15-37) IU/L ALT 104 H (14-63) IU/L Alkaline Phosphatase 100 (46-116) U/L Creatine Kinase 937 H (26-308) U/L Total Protein 7.7 (6.4-8.2) g/dL Albumin 3.9 (3.4-5.0) g/dL Globulin 3.8 (2.6-4.0) g/dL Albumin/Globulin Ratio 1.0 (0.9-1.6) Lipase 153 (73-393) U/L Vitamin D 25-Hydroxy (30.0-100.0) ng/mL Urine Color Urine Appearance Urine pH (5.0-8.0) Ur Specific Baldwin (1.001-1.035) Urine Protein (NEGATIVE) mg/dL Urine Glucose (UA) (NEGATIVE) mg/dL Urine Ketones (NEGATIVE) mg/dL Urine Occult Blood (NEGATIVE) Urine Nitrite (NEGATIVE) Urine Bilirubin (NEGATIVE) Urine Urobilinogen (<2.0) EU/dL Ur Leukocyte Esterase (NEGATIVE) Urine RBC (0-2/HPF) Urine WBC (0-5/HPF) Ur Epithelial Cells (NONE-FEW) Urine Bacteria (NEGATIVE) Urine HCG, Qual (NEGATIVE) Urine Opiates Screen NEGATIVE (NEGATIVE) Ur Oxycodone Screen NEGATIVE (NEGATIVE) Urine Methadone Screen NEGATIVE (NEGATIVE) Ur Barbiturates Screen NEGATIVE (NEGATIVE) Ur Phencyclidine Scrn NEGATIVE (NEGATIVE) Ur Amphetamine Screen NEGATIVE (NEGATIVE) U Methamphetamines Scrn NEGATIVE (NEGATIVE) U Benzodiazepines Scrn NEGATIVE (NEGATIVE) U Cocaine Metab Screen NEGATIVE (NEGATIVE) U Marijuana (THC) Screen NEGATIVE (NEGATIVE) Ethyl Alcohol < 3.0 mg/dL 06/25/19 06/26/19 06/26/19 Range/Units 18:45 06:10 06:10 WBC 4.29 (4.0-11.0) K/uL RBC 3.76 L (4.30-5.90) M/uL Hgb 11.8 L (12.0-16.0) g/dL Hct 36.2 (36.0-46.0) % MCV 96.3 (80.0-98.0) fL MCH 31.4 (27.0-32.0) pg MCHC 32.6 (31.0-37.0) g/dL RDW Std Deviation 51.9 (28.0-62.0) fl RDW Coeff of Bishop 15 (11.0-15.0) % Plt Count 163 (150-400) K/uL MPV 10.30 (7.40-12.00) fL Neut % (Auto) 60.8 (48.0-80.0) % Lymph % (Auto) 22.6 (16.0-40.0) % [place] % (Auto) 12.4 (0.0-15.0) % Eos % (Auto) 2.3 (0.0-7.0) % Baso % (Auto) 1.9 H (0.0-1.5) % Neut # (Auto) 2.6 (1.4-5.7) K/uL Lymph # (Auto) 1.0 (0.6-2.4) K/uL [place] # (Auto) 0.5 (0.0-0.8) K/uL Eos # (Auto) 0.1 (0.0-0.7) K/uL Baso # (Auto) 0.1 (0.0-0.1) K/uL Nucleated RBC % 0.0 /100WBC Nucleated RBCs # 0 K/uL Ionized Calcium 3.6 L (4.6-5.1) mg/dL Sodium 137 (136-145) mmol/L Potassium 3.3 L (3.5-5.1) mmol/L Chloride 99 (98-107) mmol/L Carbon Dioxide 27.7 (21.0-32.0) mmol/L BUN 3 L (7.0-18.0) mg/dL Creatinine 0.7 (0.6-1.0) mg/dL Est Cr Clr Drug Dosing 82.09 mL/min Estimated GFR (MDRD) > 60.0 ml/min Glucose 82 (74-106) mg/dL Hemoglobin A1c (4.5-6.2) % Calcium 7.0 L (8.5-10.1) mg/dL Phosphorus 3.6 (2.6-4.7) mg/dL Magnesium 1.8 (1.8-2.4) mg/dL Total Bilirubin 0.7 (0.2-1.0) mg/dL AST 125 H (15-37) IU/L ALT 90 H (14-63) IU/L Alkaline Phosphatase 90 (46-116) U/L Creatine Kinase 1821 H (26-308) U/L Total Protein 6.8 (6.4-8.2) g/dL Albumin 3.2 L (3.4-5.0) g/dL Globulin 3.6 (2.6-4.0) g/dL Albumin/Globulin Ratio 0.9 (0.9-1.6) Lipase (73-393) U/L Vitamin D 25-Hydroxy 11.2 L (30.0-100.0) ng/mL Urine Color Urine Appearance Urine pH (5.0-8.0) Ur Specific [place] (1.001-1.035) Urine Protein (NEGATIVE) mg/dL Urine Glucose (UA) (NEGATIVE) mg/dL Urine Ketones (NEGATIVE) mg/dL Urine Occult Blood (NEGATIVE) Urine Nitrite (NEGATIVE) Urine Bilirubin (NEGATIVE) Urine Urobilinogen (<2.0) EU/dL Ur Leukocyte Esterase (NEGATIVE) Urine RBC (0-2/HPF) Urine WBC (0-5/HPF) Ur Epithelial Cells (NONE-FEW) Urine Bacteria (NEGATIVE) Urine HCG, Qual (NEGATIVE) Urine Opiates Screen (NEGATIVE) Ur Oxycodone Screen (NEGATIVE) Urine Methadone Screen (NEGATIVE) Ur Barbiturates Screen (NEGATIVE) Ur Phencyclidine Scrn (NEGATIVE) Ur Amphetamine Screen (NEGATIVE) U Methamphetamines Scrn (NEGATIVE) U Benzodiazepines Scrn (NEGATIVE) U Cocaine Metab Screen (NEGATIVE) U Marijuana (THC) Screen (NEGATIVE) Ethyl Alcohol mg/dL 06/26/19 Range/Units 06:10 WBC (4.0-11.0) K/uL RBC (4.30-5.90) M/uL Hgb (12.0-16.0) g/dL Hct (36.0-46.0) % MCV (80.0-98.0) fL MCH (27.0-32.0) pg MCHC (31.0-37.0) g/dL RDW Std Deviation (28.0-62.0) fl RDW Coeff of Bishop (11.0-15.0) % Plt Count (150-400) K/uL MPV (7.40-12.00) fL Neut % (Auto) (48.0-80.0) % Lymph % (Auto) (16.0-40.0) % [place] % (Auto) (0.0-15.0) % Eos % (Auto) (0.0-7.0) % Baso % (Auto) (0.0-1.5) % Neut # (Auto) (1.4-5.7) K/uL Lymph # (Auto) (0.6-2.4) K/uL [place] # (Auto) (0.0-0.8) K/uL Eos # (Auto) (0.0-0.7) K/uL Baso # (Auto) (0.0-0.1) K/uL Nucleated RBC % /100WBC Nucleated RBCs # K/uL Ionized Calcium (4.6-5.1) mg/dL Sodium (136-145) mmol/L Potassium (3.5-5.1) mmol/L Chloride (98-107) mmol/L Carbon Dioxide (21.0-32.0) mmol/L BUN (7.0-18.0) mg/dL Creatinine (0.6-1.0) mg/dL Est Cr Clr Drug Dosing mL/min Estimated GFR (MDRD) ml/min Glucose (74-106) mg/dL Hemoglobin A1c 5.7 (4.5-6.2) % Calcium (8.5-10.1) mg/dL Phosphorus (2.6-4.7) mg/dL Magnesium (1.8-2.4) mg/dL Total Bilirubin (0.2-1.0) mg/dL AST (15-37) IU/L ALT (14-63) IU/L Alkaline Phosphatase (46-116) U/L Creatine Kinase (26-308) U/L Total Protein (6.4-8.2) g/dL Albumin (3.4-5.0) g/dL Globulin (2.6-4.0) g/dL Albumin/Globulin Ratio (0.9-1.6) Lipase (73-393) U/L Vitamin D 25-Hydroxy (30.0-100.0) ng/mL Urine Color Urine Appearance Urine pH (5.0-8.0) Ur Specific [place] (1.001-1.035) Urine Protein (NEGATIVE) mg/dL Urine Glucose (UA) (NEGATIVE) mg/dL Urine Ketones (NEGATIVE) mg/dL Urine Occult Blood (NEGATIVE) Urine Nitrite (NEGATIVE) Urine Bilirubin (NEGATIVE) Urine Urobilinogen (<2.0) EU/dL Ur Leukocyte Esterase (NEGATIVE) Urine RBC (0-2/HPF) Urine WBC (0-5/HPF) Ur Epithelial Cells (NONE-FEW) Urine Bacteria (NEGATIVE) Urine HCG, Qual (NEGATIVE) Urine Opiates Screen (NEGATIVE) Ur Oxycodone Screen (NEGATIVE) Urine Methadone Screen (NEGATIVE) Ur Barbiturates Screen (NEGATIVE) Ur Phencyclidine Scrn (NEGATIVE) Ur Amphetamine Screen (NEGATIVE) U Methamphetamines Scrn (NEGATIVE) U Benzodiazepines Scrn (NEGATIVE) U Cocaine Metab Screen (NEGATIVE) U Marijuana (THC) Screen (NEGATIVE) Ethyl Alcohol mg/dL Med Orders - Current: Current Medications Enoxaparin Sodium (Lovenox) 40 mg SUBCUT Q24H [facility] Folic Acid (Folic Acid) 1 mg PO BEDTIME LILIAN Last Admin: 06/25/19 20:53 Dose: 1 mg Magnesium Sulfate 2 gm/ Premix 50 mls @ 50 mls/hr IV ONETIME ONE Stop: 06/26/19 08:31 Last Admin: 06/26/19 07:53 Dose: 50 mls/hr Pantoprazole Sodium 40 mg/ (Sodium Chloride) 10 mls @ 300 mls/hr IV DAILY [facility] Sodium Chloride (Normal Saline) 1,000 mls @ 200 mls/hr IV Q5H [facility] Last Admin: 06/26/19 07:55 Dose: 200 mls/hr Calcium Gluconate 2 gm/ Sodium (Chloride) 120 mls @ 60 mls/hr IV 06/26/19@0800 [facility] Stop: 06/26/19 09:59 Ibuprofen (Motrin) 600 mg PO Q6H PRN PRN Reason: Pain (mild 1-3) Ketorolac Tromethamine (Toradol) 15 mg IVPUSH Q6H PRN PRN Reason: Pain Stop: 06/30/19 19:12 Last Admin: 06/25/19 20:57 Dose: 15 mg Lorazepam (Ativan) 0 mg IVPUSH Q4H PRN; Protocol PRN Reason: Withdrawal Symptoms Ondansetron HCl (Zofran Odt) 4 mg PO Q4H PRN PRN Reason: nausea, able to take PO Ondansetron HCl (Zofran) 4 mg IVPUSH Q4H PRN PRN Reason: Nausea Last Admin: 06/26/19 07:58 Dose: 4 mg Thiamine HCl (Vitamin B-1) 100 mg PO BEDTIME [facility] Last Admin: 06/25/19 20:53 Dose: 100 mg Discontinued Medications Calcium Gluconate (Calcium Gluconate) 1 gm IV ONETIME ONE Stop: 06/25/19 18:42 Last Admin: 06/25/19 20:45 Dose: Not Given Calcium Gluconate (Calcium Gluconate) 1 gm IV ONETIME ONE Stop: 06/25/19 20:46 Last Admin: 06/25/19 20:54 Dose: 1 gm Enoxaparin Sodium (Lovenox) 30 mg SUBCUT Q24H [facility] Last Admin: 06/25/19 21:01 Dose: 30 mg Sodium Chloride (Normal Saline) 1,000 mls @ 999 mls/hr IV BOLUS ONE Stop: 06/25/19 17:19 Last Admin: 06/25/19 16:52 Dose: 999 mls/hr Sodium Chloride (Normal Saline) 1,000 mls @ 999 mls/hr IV STAT ONE Stop: 06/25/19 18:34 Last Admin: 06/25/19 17:41 Dose: 999 mls/hr Sodium Chloride (Normal Saline) 1,000 mls @ 75 mls/hr IV ASDIRECTED [facility] Sodium Chloride (Normal Saline) 1,000 mls @ 200 mls/hr IV CONTINUOUS LILIAN Last Admin: 06/25/19 18:55 Dose: 125 mls/hr Magnesium Sulfate 4 gm/ Premix 100 mls @ 25 mls/hr IV ONETIME ONE Stop: 06/25/19 22:57 Last Admin: 06/25/19 21:02 Dose: 25 mls/hr Ketorolac Tromethamine (Toradol) 30 mg IVPUSH ONETIME ONE Stop: 06/25/19 16:20 Last Admin: 06/25/19 16:53 Dose: 30 mg Lorazepam (Ativan) 1 mg IVPUSH ONETIME ONE Stop: 06/25/19 18:58 Last Admin: 06/25/19 20:15 Dose: 1 mg Ondansetron HCl (Zofran) 4 mg IVPUSH ONETIME ONE Stop: 06/25/19 16:20 Last Admin: 06/25/19 16:53 Dose: 4 mg Potassium Chloride (Potassium Chloride) 40 meq PO ONETIME ONE Stop: 06/26/19 07:34 Sodium Phosphate (Neutra-Phos) 250 mg PO ONETIME ONE Stop: 06/25/19 22:52 Last Admin: 06/25/19 23:43 Dose: 250 mg - Exam General: Alert, Oriented, Cooperative, No Acute Distress HEENT: Pupils Equal, Pupils Reactive Lungs: Clear to Auscultation, Normal Respiratory Effort. No: Crackles, Wheezing Cardiovascular: Regular Rate, Regular Rhythm GI/Abdominal Exam: Normal Bowel Sounds, Soft, Non-Tender, No Distention Extremities: Normal Inspection, No Pedal Edema, Other (tender calfs bilaterally , no swelling, spasms) Skin: Warm, Dry Neurological: No New Focal Deficit - Problem List Review Problem List Initiated/Reviewed/Updated: Yes - My Orders Last 24 Hours: My Active Orders 06/25/19 18:34 Oxygen Therapy [RC] PRN Up ad Jie [RC] ASDIRECTED VTE/DVT Education [RC] PER UNIT ROUTINE Vital Signs [RC] Q4H Ibuprofen [Motrin] 600 mg PO Q6H PRN Ondansetron [Zofran ODT] 4 mg PO Q4H PRN Ondansetron [Zofran] 4 mg IVPUSH Q4H PRN Resuscitation Status Routine 06/25/19 18:35 Intake and Output [RC] Q12H 06/25/19 18:43 LORazepam [Ativan] See Protocol IVPUSH Q4H PRN 06/25/19 19:12 Ketorolac [Toradol] 15 mg IVPUSH Q6H PRN 06/25/19 19:14 Telemetry Monitoring [Cardiac Monitoring] [] Q8H 06/25/19 19:18 Seizure Precautions [OM.PC] Stat 06/25/19 19:22 CIWAA Assessment [] Q4H 06/25/19 21:00 Folic Acid 1 mg PO BEDTIME Thiamine [Vitamin B-1] 100 mg PO BEDTIME 06/25/19 Dinner Clear Liquid Diet [DIET] 06/26/19 06:10 PTH, INTACT [REF] Routine 06/26/19 07:32 Magnesium Sulfate/Water [Magnesium Sulfate in Water Premix] 2 gm Premix Bag 1 bag IV ONETIME 06/26/19 07:45 Sodium Chloride 0.9% [Normal Saline] 1,000 ml IV Q5H 06/26/19 08:00 Calcium Gluconate 2 gm Sodium Chloride 0.9% [Normal Saline] 100 ml IV 06/26/19 @0800 06/26/19 09:00 Cholecalciferol (Vitamin D3) [Vitamin D3] 25 mcg PO DAILY Pantoprazole [ProTONIX IV] 40 mg Sodium Chloride 0.9% [Normal Saline] 10 ml IV DAILY 06/26/19 19:00 Enoxaparin [Lovenox] 40 mg SUBCUT Q24H 06/27/19 05:11 CBC WITH AUTO DIFF [HEME] AM CMP [COMPREHENSIVE METABOLIC PN,CMP] [CHEM] AM MAGNESIUM [CHEM] AM - Assessment Assessment:: A: 1. Rhabdomyolysis 2. Hypocalcemia 3. Hypomagnesemia 4. Hypokalemia 5. Mild elevated liver enzymes, improving 6. Vitamin D deficiency P: 1. Rhabdomyolysis-increased fluids to 200 ml/hr. Will recheck CK tomorrow morning. 2. Hypocalcemia-ordered calcium gluconate 2 g IV once. will recheck later today. 3. Hypomagnesemia- replace with MgS 2 g IV once. recheck tomorrow. 4. Hypokalemia- replaced wit KCl 40 mEq PO once. 5. Elevated liver enzymes, improving. Will order hepatitis panel and TSH. 6. Vitamin D deficiency- start Vit D supplementation. Dispo: likely dc tomorrow, pending CK levels.
[2019-06-26] MEDS: Cholecalciferol (Vitamin D3) 25 MCG Tab PO SCH (09:35)
[2019-06-26] MEDS: Pantoprazole 40 MG in Sodium Chloride 0.9% 10 ML IV SCH (09:36)
[2019-06-26] MEDS ORDERED: Furosemide 40 MG/4 ML VIAL IVPUSH ONE (15:22)
[2019-06-26] MEDS ORDERED: Enoxaparin 40 MG/0.4 ML Syringe SUBCUT SCH (19:00)
[2019-06-26] MEDS: Thiamine 100 MG Tab PO SCH (20:27)
[2019-06-26] MEDS: Folic Acid 1 MG Tab PO SCH (20:27)
[2019-06-27] MEDS: Sodium Chloride 0.9% 1,000 ML IV SCH ×3 (00:23→13:47)
[2019-06-27] MEDS ORDERED: amLODIPine 5 MG Tab PO ONE (04:14)
[2019-06-27 07:15] LABS: BLOOD UREA NITROGEN,BUN 1 mg/dL (7.0-18.0); CARBON DIOXIDE,CO2 25.5 mmol/L (21.0-32.0); CHLORIDE,CL 101 mmol/L (98-107); GLUCOSE RANDOM 91 mg/dL (74-106); POTASSIUM,K 3.3 mmol/L (3.5-5.1); SODIUM,NA 139 mmol/L (136-145)
[2019-06-27] MEDS ORDERED: Magnesium Sulfate/Water 4 GM in Premix Bag 1 BAG IV ONE (07:44)
[2019-06-27] MEDS ORDERED: Calcium Gluconate 10% 1 GM/10 ML SDV IV ONE ×2 (07:45)
[2019-06-27] MEDS: Cholecalciferol (Vitamin D3) 25 MCG Tab PO SCH (08:49)
[2019-06-27] MEDS: Potassium Chloride 20 MEQ Tab.ER PO SCH ×2 (08:49→11:48)
[2019-06-27] MEDS: Pantoprazole 40 MG in Sodium Chloride 0.9% 10 ML IV SCH (08:58)
[2019-06-27] MEDS ORDERED: Calcium Gluconate 3 GM in Sodium Chloride 0.9% 100 ML IV SCH (09:00)
[2019-06-27] MEDS ORDERED: CALCIUM GLUCONATE IV SCH (10:00)
[2019-06-27] MEDS ORDERED: MAGNESIUM SULFATE IV SCH (10:00)
[2019-06-27] MEDS ORDERED: SODIUM CHLORIDE 0.9% IV SCH (10:00)
[2019-06-27] MEDS ORDERED: Calcium Carbonate 500 MG Tab.Chew PO SCH (14:00)
[2019-06-27 16:49] LABS: BLOOD UREA NITROGEN,BUN 3 mg/dL (7.0-18.0); CARBON DIOXIDE,CO2 25.2 mmol/L (21.0-32.0); CHLORIDE,CL 100 mmol/L (98-107); GLUCOSE RANDOM 96 mg/dL (74-106); POTASSIUM,K 4.7 mmol/L (3.5-5.1); SODIUM,NA 137 mmol/L (136-145)
--- NOTE | 2019-06-27 19:27 | PCM.DCSUM1 ---
Discharge Summary - Hospital Course Free Text/Narrative:: 34 y/o female presenting to the ER complaining of upper extremity muscle pain. States that her arms would spasm. In the ER she was found to have an elevated CK of 900 and electrolyte abnormalities. She was admitted for rhabdomyolysis and electrolyte abnormalities needed replenishment. She was aggressively hydrated with NS IV. Her CK increased to 1800 and then subsequently decreased down to 1500. Patient's electrolytes were replaced since she was found to be severely hypomagnesemic 0.5, hypocalcemic, hypokalemic. She was advised to stay another night for further monitoring and hydration due to her rhabdomyolysis but patient refused and decided to leave AMA. Prescriptions for magnesium, calcium, folic acid, thiamine vitamin D were sent to her pharmacy. In addition, she was advised to stay hydrated and follow-up with her PCP to recheck CK and electrolytes. - Discharge Data Discharge Date: 06/27/19 Discharge Disposition: Against Medical Advice 07 Condition: Stable - Referral to Home Health Primary Care Physician: PCP None - Patient Instructions Diet: Regular Diet as Tolerated, Drink 8-10+ Glasses/Day Activity: As Tolerated Notify Provider of: Fever, Increased Pain, Swelling and Redness, Nausea and/or Vomiting - Discharge Plan *PRESCRIPTION DRUG MONITORING PROGRAM REVIEWED*: Not Applicable *COPY OF PRESCRIPTION DRUG MONITORING REPORT IN PATIENT SWETHA: Not Applicable Prescriptions/Med Rec: Calcium Carbonate [Calcium] 500 mg PO TID #90 tab.chew Cholecalciferol (Vitamin D3) [Vitamin D3] 25 mcg PO DAILY 30 Days #30 tablet Folic Acid 1 mg PO BEDTIME 30 Days #30 tablet Magnesium Oxide 400 mg PO DAILY 30 Days #30 tablet Thiamine [Vitamin B-1] 100 mg PO BEDTIME 30 Days #30 tablet Home Medications: Home Meds Calcium Carbonate [Calcium] 500 mg PO TID #90 tab.chew 06/27/19 [Rx] Cholecalciferol (Vitamin D3) [Vitamin D3] 25 mcg PO DAILY 30 Days #30 tablet [Rx] Folic Acid 1 mg PO BEDTIME 30 Days #30 tablet 06/27/19 [Rx] Magnesium Oxide 400 mg PO DAILY 30 Days #30 tablet 06/27/19 [Rx] Thiamine [Vitamin B-1] 100 mg PO BEDTIME 30 Days #30 tablet 06/27/19 [Rx] Patient Handouts: Rhabdomyolysis Referrals: Dov De La Cruz MD [Resident] - 07/04/19 2:00 pm - Discharge Summary/Plan Comment DC Time >30 min.: No - Patient Data Vitals - Most Recent: Last Vital Signs Temp 36.1 C 06/27/19 15:15 Pulse 80 06/27/19 15:15 Resp 16 06/27/19 15:15 BP 154/102 H 06/27/19 15:35 Pulse Ox 100 06/27/19 15:15 Weight - Most Recent: 46.8 kg I&O - Last 24 hours: Intake & Output 06/27/19 06/27/19 06/27/19 06:59 14:59 22:59 Intake Total 3232 1250 2002 Output Total 3950 5100 Balance -718 1250 -3098 Lab Results - Last 24 hrs: Laboratory Results - last 24 hr 06/27/19 06/27/19 06/27/19 Range/Units 06:30 06:30 15:58 WBC 6.33 (4.0-11.0) K/uL RBC 3.77 L (4.30-5.90) M/uL Hgb 11.8 L (12.0-16.0) g/dL Hct 36.3 (36.0-46.0) % MCV 96.3 (80.0-98.0) fL MCH 31.3 (27.0-32.0) pg MCHC 32.5 (31.0-37.0) g/dL RDW Std Deviation 50.1 (28.0-62.0) fl RDW Coeff of Bishop 14 (11.0-15.0) % Plt Count 136 L (150-400) K/uL MPV 10.40 (7.40-12.00) fL Neut % (Auto) 66.8 (48.0-80.0) % Lymph % (Auto) 20.4 (16.0-40.0) % [place] % (Auto) 9.0 (0.0-15.0) % Eos % (Auto) 2.5 (0.0-7.0) % Baso % (Auto) 1.3 (0.0-1.5) % Neut # (Auto) 4.2 (1.4-5.7) K/uL Lymph # (Auto) 1.3 (0.6-2.4) K/uL [place] # (Auto) 0.6 (0.0-0.8) K/uL Eos # (Auto) 0.2 (0.0-0.7) K/uL Baso # (Auto) 0.1 (0.0-0.1) K/uL Nucleated RBC % 0.0 /100WBC Nucleated RBCs # 0 K/uL Sodium 139 137 (136-145) mmol/L Potassium 3.3 L 4.7 (3.5-5.1) mmol/L Chloride 101 100 (98-107) mmol/L Carbon Dioxide 25.5 25.2 (21.0-32.0) mmol/L BUN 1 L 3 L (7.0-18.0) mg/dL Creatinine 0.6 0.7 (0.6-1.0) mg/dL Est Cr Clr Drug Dosing 95.77 82.09 mL/min Estimated GFR (MDRD) > 60.0 > 60.0 ml/min Glucose 91 96 (74-106) mg/dL Calcium 7.2 L 9.4 (8.5-10.1) mg/dL Magnesium 0.9 L 2.0 (1.8-2.4) mg/dL Total Bilirubin 0.6 0.6 (0.2-1.0) mg/dL AST 146 H 159 H (15-37) IU/L ALT 91 H 108 H (14-63) IU/L Alkaline Phosphatase 98 116 (46-116) U/L Creatine Kinase 1606 H 1568 H (26-308) U/L Total Protein 7.0 8.5 H (6.4-8.2) g/dL Albumin 3.3 L 4.1 (3.4-5.0) g/dL Globulin 3.7 4.4 H (2.6-4.0) g/dL Albumin/Globulin Ratio 0.9 0.9 (0.9-1.6) [facility] Results - Last 24 hrs: Microbiology 06/26/19 14:30 Stool Occult Blood ([facility]) - Final Stool / Feces NEGATIVE OCCULT BLOOD REFERENCE RANGE: NEGATIVE Med Orders - Current: Current Medications Discontinued Medications Amlodipine Besylate (Norvasc) 10 mg PO ONETIME ONE Stop: 06/27/19 04:15 Last Admin: 06/27/19 04:22 Dose: 10 mg Calcium Carbonate/Glycine (Tums) 500 mg PO TID [facility]ILIAN Last Admin: 06/27/19 14:41 Dose: 500 mg Calcium Gluconate (Calcium Gluconate) 1 gm IV ONETIME ONE Stop: 06/25/19 18:42 Last Admin: 06/25/19 20:45 Dose: Not Given Calcium Gluconate (Calcium Gluconate) 1 gm IV ONETIME ONE Stop: 06/25/19 20:46 Last Admin: 06/25/19 20:54 Dose: 1 gm Calcium Gluconate (Calcium Gluconate) 1 gm IV ONETIME ONE Stop: 06/27/19 07:46 Last Admin: 06/27/19 10:11 Dose: Not Given Cholecalciferol (Vitamin D3) 25 mcg PO DAILY [facility] Last Admin: 06/27/19 08:49 Dose: 25 mcg Enoxaparin Sodium (Lovenox) 30 mg SUBCUT Q24H [facility]IAN Last Admin: 06/25/19 21:01 Dose: 30 mg Enoxaparin Sodium (Lovenox) 40 mg SUBCUT Q24H [facility] Last Admin: 06/26/19 18:38 Dose: 40 mg Folic Acid (Folic Acid) 1 mg PO BEDTIME [facility] Last Admin: 06/26/19 20:27 Dose: 1 mg Furosemide (Lasix) 20 mg IVPUSH NOW ONE Stop: 06/26/19 15:23 Last Admin: 06/26/19 15:55 Dose: 20 mg Sodium Chloride (Normal Saline) 1,000 mls @ 999 mls/hr IV BOLUS ONE Stop: 06/25/19 17:19 Last Admin: 06/25/19 16:52 Dose: 999 mls/hr Sodium Chloride (Normal Saline) 1,000 mls @ 999 mls/hr IV STAT ONE Stop: 06/25/19 18:34 Last Admin: 06/25/19 17:41 Dose: 999 mls/hr Sodium Chloride (Normal Saline) 1,000 mls @ 75 mls/hr IV ASDIRECTED [facility] Sodium Chloride (Normal Saline) 1,000 mls @ 200 mls/hr IV CONTINUOUS [facility] Last Admin: 06/25/19 18:55 Dose: 125 mls/hr Magnesium Sulfate 4 gm/ Premix 100 mls @ 25 mls/hr IV ONETIME ONE Stop: 06/25/19 22:57 Last Admin: 06/25/19 21:02 Dose: 25 mls/hr Magnesium Sulfate 2 gm/ Premix 50 mls @ 50 mls/hr IV ONETIME ONE Stop: 06/26/19 08:31 Last Admin: 06/26/19 07:53 Dose: 50 mls/hr Pantoprazole Sodium 40 mg/ (Sodium Chloride) 10 mls @ 300 mls/hr IV DAILY [facility] Last Admin: 06/27/19 08:58 Dose: 300 mls/hr Sodium Chloride (Normal Saline) 1,000 mls @ 200 mls/hr IV Q5H [facility] Last Admin: 06/26/19 17:34 Dose: Not Given Calcium Gluconate 2 gm/ Sodium (Chloride) 120 mls @ 60 mls/hr IV 06/26/19@0800 [facility] Stop: 06/26/19 09:59 Last Admin: 06/26/19 09:43 Dose: 60 mls/hr Sodium Chloride (Normal Saline) 1,000 mls @ 150 mls/hr IV CONTINUOUS [facility] Last Admin: 06/27/19 13:47 Dose: 150 mls/hr Magnesium Sulfate 4 gm/Calcium Gluconate 3 gm/ Sodium Chloride 288 mls @ 96 mls /hr IV 06/27/19@1000 [facility] Stop: 06/27/19 12:59 Last Admin: 06/27/19 09:48 Dose: 96 mls/hr Ibuprofen (Motrin) 600 mg PO Q6H PRN PRN Reason: Pain (mild 1-3) Ketorolac Tromethamine (Toradol) 30 mg IVPUSH ONETIME ONE Stop: 06/25/19 16:20 Last Admin: 06/25/19 16:53 Dose: 30 mg Ketorolac Tromethamine (Toradol) 15 mg IVPUSH Q6H PRN PRN Reason: Pain Stop: 06/30/19 19:12 Last Admin: 06/25/19 20:57 Dose: 15 mg Lorazepam (Ativan) 0 mg IVPUSH Q4H PRN; Protocol PRN Reason: Withdrawal Symptoms Lorazepam (Ativan) 1 mg IVPUSH ONETIME ONE Stop: 06/25/19 18:58 Last Admin: 06/25/19 20:15 Dose: 1 mg Magnesium Oxide (Magnesium Oxide) 400 mg PO DAILY [facility] Ondansetron HCl (Zofran) 4 mg IVPUSH ONETIME ONE Stop: 06/25/19 16:20 Last Admin: 06/25/19 16:53 Dose: 4 mg Ondansetron HCl (Zofran Odt) 4 mg PO Q4H PRN PRN Reason: nausea, able to take PO Ondansetron HCl (Zofran) 4 mg IVPUSH Q4H PRN PRN Reason: Nausea Last Admin: 06/26/19 07:58 Dose: 4 mg Potassium Chloride (Potassium Chloride) 40 meq PO ONETIME ONE Stop: 06/26/19 07:34 Last Admin: 06/26/19 08:37 Dose: 40 meq Potassium Chloride (Klor-Con M20) 40 meq PO Q4H [facility] Stop: 06/27/19 12:01 Last Admin: 06/27/19 11:48 Dose: 40 meq Sodium Phosphate (Neutra-Phos) 250 mg PO ONETIME ONE Stop: 06/25/19 22:52 Last Admin: 06/25/19 23:43 Dose: 250 mg Thiamine HCl (Vitamin B-1) 100 mg PO BEDTIME [facility] Last Admin: 06/26/19 20:27 Dose: 100 mg
[2019-06-28] MEDS ORDERED: Magnesium Oxide 400 MG Tab PO SCH (09:00)
== END 2019-06-27 17:35 | disposition left against medical advice (07) | DRG 558 ==
LOC: MW.ED 16:01 → MW.MS 19:17 → OBSVTOIN 06-26 10:43 → MW.MS 06-26 12:53
PROVIDERS: ADMIT Student in an Organized Health Care Education/Training Program; ATTEND Student in an Organized Health Care Education/Training Program
DX: M62.82 Rhabdomyolysis (principal); E83.42 Hypomagnesemia; E83.51 Hypocalcemia; E87.6 Hypokalemia; F17.210 Nicotine dependence, cigarettes, uncomplicated; E83.39 Other disorders of phosphorus metabolism; E86.0 Dehydration; G40.909 Epilepsy, unspecified, not intractable, without status epilepticus; R74.8 Abnormal levels of other serum enzymes; Z79.899 Other long term (current) drug therapy; Z88.1 Allergy status to other antibiotic agents
CPT/HCPCS: 36415; 71045; 71045-26; 80053; 80074; 80305-QW; 81001; 81025; 82272; 82306; 82310; 82330; 82550; 83036; 83690; 83735; 83970; 84100; 84439; 84443; 84481; 85025; 86038; 93005; 96361; 96365; 96366; 96372; 96374; 96375; 96376; 99284; 99285-25; A9270-GY; C9113; G0378; G0480; J0610; J1650; J1885; J1940; J2060; J2405; J3475; J7030; J7040; J7050

== ENCOUNTER 2021-05-26 10:22 | Emergency (ER) | payer SELFPAY | END 2021-05-26 15:00 | disposition left against medical advice (07) | LOC: MW.ED 10:22 | DX: Z53.21 Procedure and treatment not carried out due to patient leaving prior to being seen by health care provider (principal) ==

== ENCOUNTER 2023-01-23 12:36 | Inpatient (IN) | payer BC ==
[2023-01-23] MEDS ORDERED: Sodium Chloride 0.9% 2.5 ML Syringe FLUSH PRN (13:16)
[2023-01-23] MEDS ORDERED: Sodium Chloride 0.9% 10 ML Syringe FLUSH PRN (13:16)
[2023-01-23] MEDS ORDERED: Sodium Chloride 0.9% 1,000 ML IV STA ×3 (13:17→16:14)
[2023-01-23 14:06] LABS: HEMATOCRIT 33.6 % (36.0-46.0); HEMOGLOBIN 11.3 g/dL (12.0-16.0); MEAN CORPUSCULAR HEMOGLOBIN 27.8 pg (27.0-32.0); MEAN CORPUSCULAR HGB CONC 33.6 g/dL (31.0-37.0); MEAN CORPUSCULAR VOLUME 82.6 fL (80.0-98.0); PLATELET COUNT,PLT 158 K/uL (150-400); RED BLOOD CELL COUNT 4.07 M/uL (4.30-5.90)
[2023-01-23 14:10] LABS: ALBUMIN 2.5 g/dL (3.4-5.0); BILIRUBIN TOTAL 0.9 mg/dL (0.2-1.0); CALCIUM 7.6 mg/dL (8.5-10.1); CARBON DIOXIDE,CO2 19.4 mmol/L (21.0-32.0); EST CRCL DRUG DOSING (CG) 28.5 mL/min; PROTEIN TOTAL,TP 8.1 g/dL (6.4-8.2)
[2023-01-23 14:27] LABS: A/G RATIO 0.5 (0.9-1.6); POTASSIUM,K 2.2 mmol/L (3.5-5.1)
[2023-01-23] MEDS ORDERED: Potassium Chloride 20 MEQ Tab.ER PO STA (14:27)
[2023-01-23] MEDS ORDERED: Potassium Chloride 100 ML IV STA (14:28)
[2023-01-23 14:48] LABS: BAND ABSOLUTE MAN 0.2; BAND PERCENT MAN 1 %; LYMPHOCYTES ABSOLUTE MAN 0.3 (0.6-2.4); LYMPHOCYTES PERCENT MAN 2 % (16.0-40.0); MONOCYTES ABSOLUTE MAN 2.6 (0.0-0.8); MONOCYTES PERCENT MAN 17 % (0.0-15.0); SEG NEUTROPHILS ABSOLUTE MAN 12.4 (1.4-5.7); SEG NEUTROPHILS PERCENT MAN 80 % (48.0-80.0)
[2023-01-23] MEDS ORDERED: Sodium Chloride 0.9% 500 ML IV ONE (15:00)
[2023-01-23] MEDS: Potassium Chloride 100 ML IV SCH ×2 (15:21→16:41)
[2023-01-23] MEDS ORDERED: Magnesium Sulfate/Water 4 GM in Premix Bag 1 BAG IV STA (16:21)
[2023-01-23 17:17] LABS: APPEARANCE,URINE CLOUDY; BILIRUBIN,URINE NEGATIVE (NEGATIVE); COLOR,URINE YELLOW; GLUCOSE,URINE NEGATIVE (NEGATIVE); KETONES,URINE NEGATIVE (NEGATIVE); LEUKOCYTE ESTERASE,URINE SMALL (NEGATIVE); NITRITE,URINE NEGATIVE (NEGATIVE); OCCULT BLOOD,URINE LARGE (NEGATIVE); PROTEIN,URINE 30 mg/dL (NEGATIVE); UROBILINOGEN,URINE 0.2 EU/dL (<2.0)
[2023-01-23 17:27] LABS: BACTERIA,URINE 3+ (NEGATIVE); EPITHELIAL CELLS,URINE MANY (NONE-FEW)
[2023-01-23] MEDS ORDERED: Levofloxacin/Dextrose 5%-Water 750 MG in Premix Bag 1 BAG IV SCH ×3 (17:45→21:00)
[2023-01-23] MEDS ORDERED: metroNIDAZOLE/Normal Saline 500 MG in Premix Bag 1 BAG IV SCH (18:00)
[2023-01-23] MEDS: metroNIDAZOLE/Normal Saline 500 MG in Premix Bag 1 BAG IV SCH (20:16)
[2023-01-23 22:31] LABS: CALCIUM 6.4 mg/dL (8.5-10.1); CARBON DIOXIDE,CO2 15.1 mmol/L (21.0-32.0); CREATININE 1.5 mg/dL (0.6-1.0); POTASSIUM,K 2.5 mmol/L (3.5-5.1)
[2023-01-24] MEDS ORDERED: Potassium Chloride 20 MEQ Tab.ER PO ONE ×3 (01:35→23:46)
[2023-01-24] MEDS ORDERED: Acetaminophen 325 MG Tab PO PRN (01:37)
[2023-01-24] MEDS ORDERED: Sodium Chloride 0.9% 1,000 ML IV SCH (01:45)
[2023-01-24] MEDS: metroNIDAZOLE/Normal Saline 500 MG in Premix Bag 1 BAG IV SCH ×3 (01:53→14:09)
[2023-01-24] MEDS: Potassium Chloride 20 MEQ in Premix Bag 1 BAG IV SCH ×2 (01:53→04:14)
[2023-01-24 06:29] LABS: BASOPHILS PERCENT AUTO 0.1 % (0.0-1.5); EOSINOPHILS PERCENT AUTO 0.1 % (0.0-7.0); HEMOGLOBIN 10.3 g/dL (12.0-16.0); LYMPHOCYTES ABSOLUTE AUTO 0.4 K/uL (0.6-2.4); LYMPHOCYTES PERCENT AUTO 3.1 % (16.0-40.0); MEAN CORPUSCULAR HEMOGLOBIN 27.8 pg (27.0-32.0); MEAN CORPUSCULAR HGB CONC 33.2 g/dL (31.0-37.0); MEAN CORPUSCULAR VOLUME 83.8 fL (80.0-98.0); MONOCYTES ABSOLUTE AUTO 2.2 K/uL (0.0-0.8); MONOCYTES PERCENT AUTO 15.8 % (0.0-15.0); NEUTROPHILS PERCENT AUTO 80.9 % (48.0-80.0); PLATELET COUNT,PLT 153 K/uL (150-400); WHITE BLOOD CELL COUNT,WBC 13.65 K/uL (4.0-11.0)
[2023-01-24 06:43] LABS: A/G RATIO 0.4 (0.9-1.6); ALBUMIN 1.9 g/dL (3.4-5.0); BILIRUBIN TOTAL 0.8 mg/dL (0.2-1.0); CALCIUM 6.8 mg/dL (8.5-10.1); CARBON DIOXIDE,CO2 12.7 mmol/L (21.0-32.0); CREATININE 1.3 mg/dL (0.6-1.0); EST CRCL DRUG DOSING (CG) 43.84 mL/min; MAGNESIUM 2.6 mg/dL (1.8-2.4); PROTEIN TOTAL,TP 6.8 g/dL (6.4-8.2)
[2023-01-24 06:45] LABS: POTASSIUM,K 5.2 mmol/L (3.5-5.1)
[2023-01-24] MEDS ORDERED: Loperamide 2 MG Cap PO ONE (09:56)
[2023-01-24] MEDS ORDERED: Loperamide 2 MG Cap PO PRN (09:57)
[2023-01-24] MEDS: Dextrose 5% in Water 1,000 ML IV SCH ×2 (10:13→21:57)
[2023-01-24 11:55] LABS: CALCIUM 6.9 mg/dL (8.5-10.1); CARBON DIOXIDE,CO2 14.2 mmol/L (21.0-32.0); CREATININE 1.3 mg/dL (0.6-1.0); EST CRCL DRUG DOSING (CG) 43.84 mL/min; POTASSIUM,K 3.2 mmol/L (3.5-5.1)
[2023-01-24] MEDS: Piperacillin/Tazobactam 3.375 GM in Sodium Chloride 0.9% 100 ML IV SCH ×2 (16:37→23:49)
[2023-01-24] MEDS ORDERED: Sodium Chloride 0.9% 250 ML ONE (17:20)
[2023-01-24 17:26] LABS: CALCIUM 6.9 mg/dL (8.5-10.1); CARBON DIOXIDE,CO2 16.1 mmol/L (21.0-32.0); CREATININE 1.3 mg/dL (0.6-1.0); EST CRCL DRUG DOSING (CG) 43.84 mL/min; POTASSIUM,K 3.1 mmol/L (3.5-5.1)
[2023-01-24 23:35] LABS: CALCIUM 7.4 mg/dL (8.5-10.1); CARBON DIOXIDE,CO2 17.8 mmol/L (21.0-32.0); CREATININE 1.3 mg/dL (0.6-1.0); EST CRCL DRUG DOSING (CG) 43.84 mL/min; POTASSIUM,K 3.2 mmol/L (3.5-5.1)
[2023-01-24] MEDS: Melatonin 3 MG Tab PO PRN (23:49)
[2023-01-25 06:04] LABS: BASOPHILS PERCENT AUTO 0.3 % (0.0-1.5); EOSINOPHILS ABSOLUTE AUTO 0.1 K/uL (0.0-0.7); HEMATOCRIT 31.3 % (36.0-46.0); HEMOGLOBIN 10.5 g/dL (12.0-16.0); LYMPHOCYTES ABSOLUTE AUTO 0.6 K/uL (0.6-2.4); LYMPHOCYTES PERCENT AUTO 5.7 % (16.0-40.0); MEAN CORPUSCULAR HEMOGLOBIN 27.8 pg (27.0-32.0); MEAN CORPUSCULAR HGB CONC 33.5 g/dL (31.0-37.0); MEAN CORPUSCULAR VOLUME 82.8 fL (80.0-98.0); MONOCYTES ABSOLUTE AUTO 1.4 K/uL (0.0-0.8); MONOCYTES PERCENT AUTO 13.5 % (0.0-15.0); NEUTROPHILS ABSOLUTE AUTO 8.3 K/uL (1.4-5.7); NEUTROPHILS PERCENT AUTO 79.5 % (48.0-80.0); PLATELET COUNT,PLT 224 K/uL (150-400); RED BLOOD CELL COUNT 3.78 M/uL (4.30-5.90); WHITE BLOOD CELL COUNT,WBC 10.49 K/uL (4.0-11.0)
[2023-01-25 06:17] LABS: CALCIUM 7.4 mg/dL (8.5-10.1); CARBON DIOXIDE,CO2 16.2 mmol/L (21.0-32.0); CREATININE 1.2 mg/dL (0.6-1.0); EST CRCL DRUG DOSING (CG) 47.5 mL/min
[2023-01-25] MEDS: Dextrose 5% in Water 1,000 ML IV SCH (06:22)
[2023-01-25] MEDS: Piperacillin/Tazobactam 3.375 GM in Sodium Chloride 0.9% 100 ML IV SCH ×3 (08:15→23:19)
[2023-01-25] MEDS ORDERED: Magnesium Sulfate/Water 2 GM in Premix Bag 1 BAG IV ONE (11:23)
[2023-01-25] MEDS ORDERED: Potassium Chloride 20 MEQ Tab.ER PO ONE (11:24)
[2023-01-25] MEDS: Sodium Chloride 0.9% 1,000 ML IV SCH ×2 (11:45→21:46)
[2023-01-25 17:15] LABS: EST CRCL DRUG DOSING (CG) 56.99 mL/min; MAGNESIUM 1.7 mg/dL (1.8-2.4); POTASSIUM,K 3.4 mmol/L (3.5-5.1)
[2023-01-26] MEDS: Melatonin 3 MG Tab PO PRN (02:13)
[2023-01-26] MEDS: Sodium Chloride 0.9% 1,000 ML IV SCH (05:49)
[2023-01-26 06:05] LABS: HEMATOCRIT 26.3 % (36.0-46.0); HEMOGLOBIN 8.8 g/dL (12.0-16.0); MEAN CORPUSCULAR HEMOGLOBIN 27.8 pg (27.0-32.0); MEAN CORPUSCULAR HGB CONC 33.5 g/dL (31.0-37.0); PLATELET COUNT,PLT 291 K/uL (150-400); RED BLOOD CELL COUNT 3.17 M/uL (4.30-5.90); WHITE BLOOD CELL COUNT,WBC 8.32 K/uL (4.0-11.0)
[2023-01-26 06:25] LABS: CALCIUM 6.9 mg/dL (8.5-10.1); CARBON DIOXIDE,CO2 14.9 mmol/L (21.0-32.0); EST CRCL DRUG DOSING (CG) 56.99 mL/min; POTASSIUM,K 3.4 mmol/L (3.5-5.1)
[2023-01-26 06:45] LABS: BAND ABSOLUTE MAN 0.6; BAND PERCENT MAN 7 %; LYMPHOCYTES ABSOLUTE MAN 2.2 (0.6-2.4); LYMPHOCYTES PERCENT MAN 27 % (16.0-40.0); NRBC MANUAL 7 %; SEG NEUTROPHILS ABSOLUTE MAN 5.5 (1.4-5.7); SEG NEUTROPHILS PERCENT MAN 66 % (48.0-80.0)
[2023-01-26] MEDS: Piperacillin/Tazobactam 3.375 GM in Sodium Chloride 0.9% 100 ML IV SCH ×3 (08:01→20:45)
[2023-01-26] MEDS ORDERED: Potassium Chloride 20 MEQ Tab.ER PO ONE (09:46)
[2023-01-26] MEDS: Magnesium Sulfate/Water 4 GM in Premix Bag 1 BAG IV ONE ×2 (11:34→14:47)
[2023-01-26] MEDS ORDERED: diphenhydrAMINE 25 MG Cap PO ONE (15:40)
[2023-01-27] MEDS: Piperacillin/Tazobactam 3.375 GM in Sodium Chloride 0.9% 100 ML IV SCH (01:27)
[2023-01-27 06:12] LABS: HEMATOCRIT 28.1 % (36.0-46.0); HEMOGLOBIN 9.4 g/dL (12.0-16.0); MEAN CORPUSCULAR HGB CONC 33.5 g/dL (31.0-37.0); MEAN CORPUSCULAR VOLUME 83.6 fL (80.0-98.0); PLATELET COUNT,PLT 372 K/uL (150-400); RED BLOOD CELL COUNT 3.36 M/uL (4.30-5.90); WHITE BLOOD CELL COUNT,WBC 8.62 K/uL (4.0-11.0)
[2023-01-27 06:20] LABS: CALCIUM 7.3 mg/dL (8.5-10.1); CARBON DIOXIDE,CO2 19.5 mmol/L (21.0-32.0); CREATININE 0.8 mg/dL (0.6-1.0); EST CRCL DRUG DOSING (CG) 71.24 mL/min; MAGNESIUM 1.2 mg/dL (1.8-2.4); POTASSIUM,K 3.3 mmol/L (3.5-5.1)
[2023-01-27 06:46] LABS: BAND ABSOLUTE MAN 0.1; BAND PERCENT MAN 1 %; BASOPHILS ABSOLUTE MAN 0.3 (0.0-0.1); BASOPHILS PERCENT MAN 4 % (0.0-1.5); LYMPHOCYTES % ATYPICAL MANUAL 7; LYMPHOCYTES ABSOLUTE MAN 1.6 (0.6-2.4); LYMPHOCYTES PERCENT MAN 19 % (16.0-40.0); MONOCYTES ABSOLUTE MAN 0.2 (0.0-0.8); MONOCYTES PERCENT MAN 2 % (0.0-15.0); SEG NEUTROPHILS ABSOLUTE MAN 5.8 (1.4-5.7); SEG NEUTROPHILS PERCENT MAN 67 % (48.0-80.0)
[2023-01-27] MEDS ORDERED: Potassium Chloride 20 MEQ Tab.ER PO ONE (07:06)
[2023-01-27] MEDS ORDERED: Magnesium Sulfate/Water 2 GM in Premix Bag 1 BAG IV ONE (07:30)
[2023-01-27] MEDS: Levofloxacin/Dextrose 5%-Water 750 MG in Premix Bag 1 BAG IV SCH (09:16)
[2023-01-27] MEDS: Calcium Polycarbophil 625 MG Tab PO SCH (11:13)
[2023-01-28 06:46] LABS: BASOPHILS ABSOLUTE AUTO 0.1 K/uL (0.0-0.1); BASOPHILS PERCENT AUTO 0.7 % (0.0-1.5); EOSINOPHILS ABSOLUTE AUTO 0.2 K/uL (0.0-0.7); EOSINOPHILS PERCENT AUTO 1.8 % (0.0-7.0); HEMATOCRIT 30.2 % (36.0-46.0); HEMOGLOBIN 9.8 g/dL (12.0-16.0); LYMPHOCYTES ABSOLUTE AUTO 1.6 K/uL (0.6-2.4); MEAN CORPUSCULAR HGB CONC 32.5 g/dL (31.0-37.0); MEAN CORPUSCULAR VOLUME 83.2 fL (80.0-98.0); MONOCYTES ABSOLUTE AUTO 1.2 K/uL (0.0-0.8); MONOCYTES PERCENT AUTO 14.4 % (0.0-15.0); NEUTROPHILS ABSOLUTE AUTO 5.3 K/uL (1.4-5.7); NEUTROPHILS PERCENT AUTO 64.1 % (48.0-80.0); NRBC ABSOLUTE 0 K/uL; PLATELET COUNT,PLT 472 K/uL (150-400); RED BLOOD CELL COUNT 3.63 M/uL (4.30-5.90); WHITE BLOOD CELL COUNT,WBC 8.25 K/uL (4.0-11.0)
[2023-01-28 07:22] LABS: CALCIUM 7.5 mg/dL (8.5-10.1); CARBON DIOXIDE,CO2 21.6 mmol/L (21.0-32.0); CREATININE 0.8 mg/dL (0.6-1.0); EST CRCL DRUG DOSING (CG) 71.24 mL/min; MAGNESIUM 1.1 mg/dL (1.8-2.4); POTASSIUM,K 3.5 mmol/L (3.5-5.1)
[2023-01-28] MEDS ORDERED: Magnesium Sulfate/Water 4 GM in Premix Bag 1 BAG IV ONE (07:45)
[2023-01-28] MEDS: Calcium Polycarbophil 625 MG Tab PO SCH (09:52)
[2023-01-28] MEDS: Levofloxacin/Dextrose 5%-Water 750 MG in Premix Bag 1 BAG IV SCH (10:16)
== END 2023-01-28 18:33 | disposition home or self-care (01) | DRG 720 ==
LOC: MW.ED 12:36 → MW.MS 16:13 → OBSVTOIN 01-25 14:55 → MW.MS 01-25 14:56
PROVIDERS: ADMIT Internal Medicine; ATTEND Internal Medicine
DX: A41.51 Sepsis due to Escherichia coli [E. coli] (principal); N17.9 Acute kidney failure, unspecified; N39.0 Urinary tract infection, site not specified; E87.6 Hypokalemia; E83.42 Hypomagnesemia; G40.909 Epilepsy, unspecified, not intractable, without status epilepticus; I10 Essential (primary) hypertension; Z88.1 Allergy status to other antibiotic agents
CPT/HCPCS: 36415; 74176; 74176-26; 80048; 80053; 80202; 81001; 81025; 82140; 82550; 83605; 83735; 85025; 87040; 87045; 87046; 87077; 87086; 87088; 87147; 87186; 87324; 87449; 87899; 93005; 93010; 96361; 96365; 96366; 96367; 96368; 96376; 99222; 99232; 99239; 99285; 99285-25; A9270-GY; G0378; J1956; J2543; J3370; J3475; J3480; J3490; J7030; J7040; J7050; J7060